=== PATIENT | female | born 1980 | race Two or more races ===

== ENCOUNTER 2018-11-23 06:49 | Emergency (ER) | payer OTHER ==
[~2018-11-23] VITALS: Ht 165.1 cm; Wt 56.7 kg
== END 2018-11-23 11:16 | disposition home or self-care (01) ==
LOC: ER 06:49
DX: R05 Cough (principal)

== ENCOUNTER 2023-11-12 14:35 | Emergency (ER) | payer OTHER ==
[~2023-11-12] VITALS: Ht 165.1 cm; Wt 60.3 kg
[2023-11-12 17:47] LABS: HEMATOCRIT 44.5 % (36.0-45.00); MEAN CELL VOLUME 83.9 fL (80.00-100.00); MEAN CORPUSCULAR HEMOGLOBIN 28.3 pg (27.00-32.0); MEAN CORPUSCULAR HGB CONC 33.7 g/dl (32.0-36.0); PLATELET COUNT 419 K/uL (150-450); RED CELL DISTRIBUTION WIDTH 15.1 % (11.5-14.5)
[2023-11-12 17:50] LABS: PH,URINE 6.5 (5.0-8.0); URINE APPEARANCE Clear; URINE BILIRRUBIN Negative (NEGATIVE); URINE BLOOD Moderate; URINE COLOR Yellow; URINE GLUCOSE Negative (NEGATIVE); URINE LEUKOCYTE Moderate; URINE NITRATE Negative; URINE PROTEIN Negative (NEGATIVE); URINE UROBILINOGEN 0.2 E.U./dl
[2023-11-12 17:54] LABS: URINE BACTERIA 366.6 uL (0.0-1933); URINE EPITHELIAL CELLS 12.8 uL (0.0-38.8); URINE RBC 62.3 uL (0.0-20.8); URINE WBC 227.2 uL (0.0-23.2)
[2023-11-12 18:10] LABS: CALCIUM 10.3 mg/dL (8.5-10.1); CREATININE SERUM 0.66 mg/dL (0.55-1.02); GFR 96.85
[2023-11-12] MEDS ORDERED: PEPCID AC20 MG PO (20:13)
[2023-11-12] MEDS ORDERED: ONDANSETRON HCL4 MG PO (20:13)
== END 2023-11-12 20:30 ==
LOC: ER 14:36
PROVIDERS: Nurse Practitioner Family
DX: R11.10 Vomiting, unspecified (principal); R19.7 Diarrhea, unspecified; F41.9 Anxiety disorder, unspecified; I10 Essential (primary) hypertension; Z88.0 Allergy status to penicillin